=== PATIENT | male | born 1960 | race Caucasian/White ===

== ENCOUNTER 2021-11-25 12:44 | Emergency (ER) | payer BC ==
[~2021-11-25] VITALS: Ht 182.9 cm; Wt 104.3 kg
--- NOTE | 2021-11-25 13:00 | NUR ---
PT BIB SELF C/O R FLANK PAIN STARTED THIS MORNING. PT IS AAOX4, NOT IN RESPIRATORY DISTRESS, HOOKED TO CAR SWEEPER, KEPT RESTED AND COMFORTABLE. WILL CONTINUE TO MONITOR.
--- NOTE | 2021-11-25 13:10 | NUR ---
URINE SPECIMEN COLLECTED AND SENT TO LAB.
--- NOTE | 2021-11-25 13:15 | NUR ---
PT SEEN AND EXAMINED BY .
[2021-11-25] MEDS ORDERED: KETOROLAC TROMETHAMINE 15 MG/ML VIAL ONE (13:19)
[2021-11-25] MEDS ORDERED: ONDANSETRON HCL/PF 4 MG/2 ML VIAL ONE (13:20)
--- NOTE | 2021-11-25 13:20 | NUR ---
IV LINE ESTABLISHED BLOOD DRAWN AND SENT TO LAB.
--- NOTE | 2021-11-25 13:25 | NUR ---
US TECH AT PT'S BEDSIDE
[2021-11-25] MEDS ORDERED: IV NS 0.9% 1,000 ML BAG IV ONE (13:30)
[2021-11-25] MEDS ORDERED: ONDANSETRON HCL/PF 4 MG/2 ML VIAL IVP ONE (13:30)
[2021-11-25] MEDS ORDERED: KETOROLAC TROMETHAMINE INJ 30 MG/ML VIAL IV ONE (13:30)
[2021-11-25 14:07] LABS: BASOPHILS # (AUTO) 0.1 K/uL (0.0-0.2); BASOPHILS % (AUTO) 0.8 % (0.0-2.0); EOSINOPHILS % (AUTO) 3.3 % (0.0-6.0); HEMATOCRIT 47 % (39-51); LYMPHOCYTES # (AUTO) 1.4 K/uL (0.8-4.8); LYMPHOCYTES % (AUTO) 18.2 % (20.0-44.0); MEAN CORPUSCULAR HGB CONC 34 g/dl (31.0-36.0); MEAN CORPUSCULAR VOLUME 90 fL (80-96); MONOCYTES # (AUTO) 0.5 K/uL (0.1-1.30); MONOCYTES % (AUTO) 6.2 % (2.0-12.0); NEUTROPHILS # (AUTO) 5.6 K/uL (1.8-8.9); NEUTROPHILS % (AUTO) 71.5 % (43.0-81.0); PLATELET COUNT (AUTO) 238 K/uL (150-450); RED BLOOD CELL COUNT(AUTO) 5.24 MIL/uL (4.5-6.0); WHITE BLOOD COUNT (AUTO) 7.8 K/uL (4.3-11.0)
[2021-11-25 14:12] LABS: BILIRUBIN,URINE NEGATIVE (NEGATIVE); COLOR,URINE YELLOW (YELLOW); LEUKOCYTE ESTERASE ,URINE NEGATIVE (NEGATIVE); NITRITE, URINE NEGATIVE (NEGATIVE); PROTEIN,URINE NEGATIVE (NEGATIVE); UGLUCOSE NEGATIVE (NEGATIVE); UROBILINOGEN,URINE 0.2 EU/dL (0.2)
[2021-11-25 14:18] LABS: CALCIUM, SERUM 8.8 mg/dL (8.5-10.1); CREATININE 1.4 mg/dL (0.6-1.3); POTASSIUM 4.1 mmol/L (3.5-5.1)
[2021-11-25 14:25] LABS: ALBUMIN 4.1 g/dL (3.4-5.0); BILIRUBIN,DIRECT 0.1 mg/dL (0.0-0.2); BILIRUBIN,TOTAL 0.6 mg/dL (0.2-1.0)
[2021-11-25] MEDS ORDERED: MORPHINE SULFATE INJ 2 MG/ML DISP.SYRIN IV ONE (14:30)
[2021-11-25] MEDS ORDERED: MORPHINE SULFATE INJ 4 MG/ML DISP.SYRIN ONE (14:34)
[2021-11-25] MEDS ORDERED: IBUP-1957 PO ×2 (15:02→15:48)
[2021-11-25] MEDS ORDERED: ONDA4TAB11 PO ×2 (15:02→15:48)
[2021-11-25] MEDS ORDERED: TAMS-12 PO ×2 (15:02→15:48)
[2021-11-25 15:37] LABS: BACTERIA,URINE None seen /HPF (None Seen); MUCUS,URINE Few /LPF (None Seen); SQUAMOUS EPITHELIAL CELL,UR 0-2 /HPF (None Seen); WBC,URINE 0-2 /HPF (0-3)
[2021-11-25] MEDS ORDERED: ONDA-97 PO (15:48)
--- NOTE | 2021-11-25 16:02 | NUR ---
Patient discharged to home in stable condition. Written and verbal after care instructions given. Patient verbalizes understanding of instruction. PT ambulatory with a steady gait. DC IV WITH NO ACTIVE BLEEDING
[2021-11-25 16:25] VITALS: BP 151/84
[2021-11-26] MEDS ORDERED: HYDR-4209 PO (21:00)
[2021-11-26] MEDS ORDERED: CYCL10TA9 PO (21:00)
== END 2021-11-25 16:25 | disposition home or self-care (01) ==
LOC: ER 13:01
DX: N20.0 Calculus of kidney (principal); I10 Essential (primary) hypertension; F17.290 Nicotine dependence, other tobacco product, uncomplicated; Z79.1 Long term (current) use of non-steroidal anti-inflammatories (NSAID); Z79.899 Other long term (current) drug therapy
CPT/HCPCS: 36415; 76770; 80048; 80076; 81001; 83690; 85025; 93005; 96361; 96374; 96375; 99285; J1885; J2270; J2405; J7030

== ENCOUNTER → 2021-11-26 | Emergency (ER) | payer BC, OTHER ==
[~2021-11-26] VITALS: Ht 182.9 cm; Wt 104.3 kg
[~2021-11-26] MED LIST: CYCL10TA9 PO; HYDR-4209 PO; HYDROCODONE/APAP 5/325MG TABLET ONE; HYDROCODONE/APAP 5/325MG TABLET PO ONE; IBUP-1957 PO; IV NS 0.9% 1,000 ML BAG IV ONE; ONDA-97 PO; ONDA4TAB11 PO; ONDANSETRON HCL/PF 4 MG/2 ML VIAL IVP ONE; ONDANSETRON HCL/PF 4 MG/2 ML VIAL ONE; TAMS-12 PO
--- NOTE | 2021-11-26 17:12 | NUR ---
PT BIB SELF C/O R SIDED FLANK PAIN SINCE YESTERDAY. WORST WHEN UPRIGHT. PT IS AAOX4, NOT IN RESPIRATORY DISTRESS, HOOKED TO LUBE TECHNICIAN, KEPT RESTED AND COMFORTABLE. WILL CONTINUE TO MONITOR.
--- NOTE | 2021-11-26 18:04 | NUR ---
SEEN AND EXAMINED BY GEORGINA HELMS
--- NOTE | 2021-11-26 18:10 | NUR ---
PT IV LINE ESTABLISHED BLOOD DRAWN AND SENT TO LAB.
[2021-11-26 18:48] LABS: CALCIUM, SERUM 8.4 mg/dL (8.5-10.1); CREATININE 1.1 mg/dL (0.6-1.3); POTASSIUM 3.8 mmol/L (3.5-5.1)
[2021-11-26 18:55] LABS: ALBUMIN 3.4 g/dL (3.4-5.0); BILIRUBIN,DIRECT 0.1 mg/dL (0.0-0.2); BILIRUBIN,TOTAL 0.4 mg/dL (0.2-1.0); TOTAL PROTEIN, SERUM 6.7 g/dL (6.4-8.2)
[2021-11-26 19:54] LABS: BASOPHILS % (AUTO) 0.5 % (0.0-2.0); EOSINOPHILS % (AUTO) 2.8 % (0.0-6.0); HEMATOCRIT 44 % (39-51); LYMPHOCYTES # (AUTO) 1.3 K/uL (0.8-4.8); LYMPHOCYTES % (AUTO) 16.3 % (20.0-44.0); MEAN CORPUSCULAR HGB CONC 34 g/dl (31.0-36.0); MEAN CORPUSCULAR VOLUME 88 fL (80-96); MONOCYTES # (AUTO) 0.8 K/uL (0.1-1.30); MONOCYTES % (AUTO) 9.7 % (2.0-12.0); NEUTROPHILS # (AUTO) 5.8 K/uL (1.8-8.9); NEUTROPHILS % (AUTO) 70.7 % (43.0-81.0); PLATELET COUNT (AUTO) 239 K/uL (150-450); RED BLOOD CELL COUNT(AUTO) 4.94 MIL/uL (4.5-6.0); WHITE BLOOD COUNT (AUTO) 8.2 K/uL (4.3-11.0)
[2021-11-26 20:49] LABS: BILIRUBIN,URINE NEGATIVE (NEGATIVE); COLOR,URINE YELLOW (YELLOW); LEUKOCYTE ESTERASE ,URINE NEGATIVE (NEGATIVE); NITRITE, URINE NEGATIVE (NEGATIVE); PH,URINE 6.5 (5.0-8.0); PROTEIN,URINE NEGATIVE (NEGATIVE); UGLUCOSE NEGATIVE (NEGATIVE); UROBILINOGEN,URINE 0.2 EU/dL (0.2)
[2021-11-26 21:43] LABS: BACTERIA,URINE None seen /HPF (None Seen); SQUAMOUS EPITHELIAL CELL,UR 0-2 /HPF (None Seen); WBC,URINE 0-2 /HPF (0-3)
[2021-11-26 22:00] VITALS: BP 152/86
--- NOTE | 2021-11-26 22:00 | NUR ---
Patient discharged to home in stable condition. Written and verbal after care instructions given. Patient verbalizes understanding of instruction.IV removed. Catheter intact and site benign. Pressure and 4x4 applied to site. No bleeding noted.
== END | disposition home or self-care (01) ==
LOC: ER 17:28
DX: R10.9 Unspecified abdominal pain (principal)
CPT/HCPCS: 36415; 74176; 80048; 80076; 81001; 83690; 85025; 96361; 96374; 99284; J2405; J7030